=== PATIENT | female | born 1965 | race Caucasian/White ===

== ENCOUNTER 2023-07-13 12:20 | Emergency (ER) | payer MEDICARE, MEDICAID ==
[~2023-07-13] VITALS: Ht 162.6 cm; Wt 65.9 kg
[~2023-07-13 12:20] MED LIST: ALPR1TAB7 PO; BUME1TAB34 PO; CARV12.549 PO; CEPH-585 PO; ESTR1TAB28 PO; HYDR-3686 PO; LEVO50TA8 PO; LISI2.5T14 PO; NICO-630 TD; RIVA20TA PO
[2023-07-13 12:25] VITALS: BP 125/79; PULSE 85; RESP 16; TEMP 98; O2SAT 100
[2023-07-13 12:49] LABS: BASOPHILS % (AUTO) 0.7 % (0-1); EOSINOPHILS # (AUTO) 0.2 X10'3 (0-0.9); EOSINOPHILS % (AUTO) 2.9 % (0-6); HEMATOCRIT 40.2 % (35.0-45.0); HEMOGLOBIN 13.7 g/dl (12.0-16.0); LYMPHOCYTES # (AUTO) 3.1 X10'3 (1.1-4.8); LYMPHOCYTES % (AUTO) 48.1 % (21-51); MEAN CORPUSCULAR HEMOGLOBIN 31.1 PG (27.0-31.0); MEAN CORPUSCULAR VOLUME 91.3 FL (78-98); MEAN PLATELET VOLUME 9.3 FL (7.4-10.4); MONOCYTES # (AUTO) 0.6 X10'3 (0-0.9); MONOCYTES % (AUTO) 8.8 % (2-12); NEUTROPHILS # (AUTO) 2.5 X10'3 (1.8-7.7); NEUTROPHILS % (AUTO) 39.5 % (42-75); PLATELET COUNT 217 X10'3 (140-440); RED CELL DISTRIBUTION WIDTH 13.3 % (11.5-14.5); WHITE BLOOD COUNT 6.4 X10'3 (4.5-11.0)
[2023-07-13 13:11] LABS: ALANINE AMINOTRANSFERASE 26 U/L (12-78); ALKALINE PHOSPHATASE 69 IU/L (46-116); ANION GAP 5 (8-16); ASPARTATE AMINO TRANSFERASE 25 U/L (10-37); BILIRUBIN,TOTAL 0.4 MG/DL (0.1-1.0); BLOOD UREA NITROGEN 16 MG/DL (7-18); BUN/CREATININE RATIO 13.8 (10.0-20.0); CALCIUM 9.3 MG/DL (8.5-10.1); CHLORIDE 103 MMOL/L (99-107); CREATININE 1.16 MG/DL (0.40-0.90); GLUCOSE 94 MG/DL (70-104); POTASSIUM 4.6 MMOL/L (3.5-5.1); SODIUM 139 MMOL/L (135-145); TOTAL CARBON DIOXIDE 30.6 MMOL/L (24-32); TOTAL PROTEIN 7.9 G/DL (6.4-8.2); eCRCL 47 ML/MIN; eGFR 48 ML/MIN
[2023-07-13 13:17] LABS: PRO BRAIN NATRIURETIC PEPTIDE 149 PG/ML (0-125)
== END 2023-07-13 16:27 | disposition left against medical advice (07) ==
LOC: ER 12:21
DX: R07.9 Chest pain, unspecified (principal); Z53.21 Procedure and treatment not carried out due to patient leaving prior to being seen by health care provider
CPT/HCPCS: 36415; 71045; 80053; 83880; 84484; 85025; 93005; 99281

== ENCOUNTER 2025-04-28 09:32 | Emergency (ER) | payer MEDICARE, MEDICAID ==
[~2025-04-28] VITALS: Ht 162.6 cm; Wt 68.8 kg
[~2025-04-28 09:32] MED LIST changes: +ALPR-385 PO; -BUME1TAB34 PO; +BUME1TAB45 PO
[2025-04-28 09:40] VITALS: BP 102/58; PULSE 77; RESP 18; TEMP 97.8; O2SAT 96
[2025-04-28] MEDS ORDERED: ALPR-624 PO (10:20)
--- NOTE | 2025-04-28 10:20 | Physician Documentation ---
HPI ~ General Chief Complaint: Medication Request Stated Complaint: ANXIETY Time Seen by MD: 10:06 Primary Medical Doctor: Dr Dada Kaur at [facility] History of Present Illness HPI Comments 60-year-old female with a history of anxiety presents requesting medication refill of Xanax 1 mg 3 times area daily for a whole month because she is waiting to see for [facility]. denies HI or SI Medication Reconciliation Allergies: Coded Allergies: metoclopramide (Verified Allergy, Severe, 04/28/25) prochlorperazine (Verified Allergy, Severe, 04/28/25) chlordiazepoxide (Verified Allergy, Unknown, 04/28/25) dicyclomine (Verified Allergy, Unknown, 04/28/25) Uncoded Allergies: PEACHES (Allergy, Severe, 03/19/16) Scheduled Bumetanide (Bumetanide), 1 TAB PO BID, (Reported) Carvedilol (Carvedilol), 1 TAB PO BID, (Reported) Cephalexin*Monohydrate* (Keflex*), 500 MG PO BID Estradiol (Estradiol), 1 TAB PO DAILY, (Reported) Hydroxyzine Hcl* (Atarax*), 1 TAB PO BID, (Reported) Levothyroxine Sodium (Levothyroxine Sodium), 1 TAB PO QAM, (Reported) Lisinopril (Lisinopril), 2 TAB PO DAILY, (Reported) Nicotine 7 MG Patch* (Habitrol 7 MG Patch*), 1 PATCH TD DAILY Rivaroxaban (Xarelto), 1 TAB PO DAILY, (Reported) Scheduled PRN Alprazolam (Alprazolam), 1 TAB PO TID PRN for anxiety, (Reported) Alprazolam (Alprazolam), 1 TAB PO Q12H PRN PRN for anxiety Alprazolam* (Xanax*), 1 TAB PO Q12H PRN PRN for anxiety Past Medical History Past Medical History: *CARDIOVASCULAR* Other Past Surgical History: ICD placement Patient History: Frankie thyroiditis MOTHER Alcohol Use: None Drug Use: none Lives with: Family Lives In: Home Occupation: unemployed Review of Systems All Other Systems at this time: Reviewed and Negative ROS As stated above in the HPI, otherwise all systems are reviewed and negative. Physical Exam Physical Exam Vital Signs: Temperature: 97.8, Source: Temporal, Heart Rate: 77, Respiratory Rate: 18, BP: 102/58, Pulse Oximetry: 96, Weight: 68.800 Physical Exam General: Alert, no apparent distress. Respiratory: Lungs clear, no respiratory distress. Cardiovascular: Regular rate and rhythm, no murmurs. Gastrointestinal: Soft, nontender, nondistended. Bowels sounds present. Neurologic: Oriented x4. Psychiatric: Normal mood and affect. Skin: Normal color, warm and dry. No edema, no ecchymosis. Progress Results/Orders Results/Orders Vital Signs 04/28/25 09:40 Temp 97.8 Pulse 77 Resp 18 B/P (MAP) 102/58 Pulse Ox 96 Medical Decision Making Additional info obtained from: other Findings Not feel comfortable prescribing a large amount of Xanax to this patient considering she is being follow up in the outpatient setting. Told her I would give her two pills and her response was "okay then I am going to come back every day". Told her that was an inappropriate use of the emergency room. Advised h er to taper off benzodiazepines as she has clearly developed a tolerance. I offered Atarax she says she already has that at home Differential Dx:Considerations: Include: Adverse circumstances, Economic, Psychosocial, Medical services unavail., Medication refill, Medication non- compliance, Other Departure Disposition: 01 HOME / SELF CARE / HOMELESS Impression: Primary Impression: Encounter for medication refill Discharge Instructions: Medicine Refill at the Emergency Department Referrals: NO PRIMARY CARE PROVIDER (PCP) Prescriptions Alprazolam* (Xanax*) 0.5 Mg Tablet 1 TAB PO Q12H PRN PRN for anxiety for 1 Day, #2 TAB 0 Refills Prov: FRANK DELEON NP 04/28/25 Education Educated: Patient Educated regarding: diagnosis Signature Scribe Signature: gf Attestation: Scribed for Frank Deleon Photoengraving Supervisor by Frank Florentino NP . 04/28/25 10:18 FRANK DELEON NP Apr 28, 2025 10:20
== END 2025-04-28 10:45 | disposition home or self-care (01) ==
LOC: ER 09:33
DX: F41.9 Anxiety disorder, unspecified (principal); Z76.0 Encounter for issue of repeat prescription; Z88.8 Allergy status to other drugs, medicaments and biological substances; Z79.899 Other long term (current) drug therapy; Z56.0 Unemployment, unspecified
CPT/HCPCS: 99282

== ENCOUNTER 2025-04-30 07:46 | Emergency (ER) | payer MEDICARE, MEDICAID ==
[~2025-04-30] VITALS: Ht 162.6 cm; Wt 68.2 kg
[~2025-04-30 07:46] MED LIST changes: +ALPR-624 PO
--- NOTE | 2025-04-30 08:41 | Physician Documentation ---
History of Present Illness General Chief Complaint: Medication Refill Stated Complaint: ANXIETY Time Seen by MD: 08:35 Primary Medical Doctor: Dr Dada Kaur at [facility] History of Present Illness Initial Comments Patient is a 60-year-old female states that she has been on Xanax since she was 23 and she states she has run out of her prescription of Xanax patient states that she does have a appointment on the 12th with the next month with [facility]. Patient states she has been decreasing her dose of Xanax at home but his currently running out. Patient was given two Xanax several days ago for a prescription. The patient denies any fevers chills nausea vomiting or diarrhea. Medication Reconciliation Allergies: Coded Allergies: metoclopramide (Verified Allergy, Severe, 04/30/25) prochlorperazine (Verified Allergy, Severe, 04/30/25) chlordiazepoxide (Verified Allergy, Unknown, 04/30/25) dicyclomine (Verified Allergy, Unknown, 04/30/25) Uncoded Allergies: PEACHES (Allergy, Severe, 03/19/16) Scheduled Bumetanide (Bumetanide), 1 TAB PO BID, (Reported) Carvedilol (Carvedilol), 1 TAB PO BID, (Reported) Cephalexin*Monohydrate* (Keflex*), 500 MG PO BID Estradiol (Estradiol), 1 TAB PO DAILY, (Reported) Hydroxyzine Hcl* (Atarax*), 1 TAB PO BID, (Reported) Levothyroxine Sodium (Levothyroxine Sodium), 1 TAB PO QAM, (Reported) Lisinopril (Lisinopril), 2 TAB PO DAILY, (Reported) Nicotine 7 MG Patch* (Habitrol 7 MG Patch*), 1 PATCH TD DAILY Rivaroxaban (Xarelto), 1 TAB PO DAILY, (Reported) Scheduled PRN Alprazolam (Alprazolam), 1 TAB PO TID PRN for anxiety, (Reported) Alprazolam (Alprazolam), 1 TAB PO Q12H PRN PRN for anxiety Alprazolam* (Xanax*), 1 TAB PO Q12H PRN PRN for anxiety Lorazepam (Ativan), 1 TAB PO Q8H PRN for anxiety Past Medical History Past Medical History: *CARDIOVASCULAR* Other Past Surgical History: ICD placement Alcohol Use: None Drug Use: none Lives with: Family Lives In: Home Occupation: unemployed Review of Systems All Other Systems at this time: Reviewed and Negative Physical Exam Physical Exam Vital Signs: Source: Oral, Heart Rate: 75, Respiratory Rate: 18, BP: 115/71, Pulse Oximetry: 99, Weight: 68.180 Physical Exam VITALS: Reviewed and as above. GENERAL: Alert, no apparent distress. HEENT: Normocephalic, atraumatic, PERRL, EOMI, dry mucosa, no erythema RESPIRATORY: Lungs clear, normal breath sounds, no respiratory distress. CHEST: No accessory muscle use, no retractions CV: Regular rate, rhythm, no edema, no murmur, No: JVD GI: Soft, non-tender, bowels sounds present, no rebound, guarding, or rigidity BACK: No CVA tenderness, or swelling MUSCULOSKELETAL: No deformities, no edema SKIN: Warm and dry, no rash NEURO: Oriented x4, No motor or sensory deficit PSYCH: Normal mood and affect, no agitation Progress Results/Orders Results/Orders Vital Signs 04/30/25 04/30/25 04/30/25 07:52 09:27 09:28 Pulse 75 60 61 Resp 18 18 18 B/P (MAP) 115/71 119/76 (90) 119/76 Pulse Ox 99 98 98 O2 Flow Rate 0 Medical Decision Making Additional information obtaine: old records Findings Patient takes a large amount of his Xanax she is here requesting a refill of her Xanax and concerned that she might go into benzodiazepine withdrawal. The patient is currently not in no withdrawal state the patient has been advised that we do not prescribe continuing prescriptions for benzodiazepines I told her I would give her a one time prescription for Ativan 12 pills. The patient's prior hospitalizations have been reviewed patient is otherwise well-appearing. The patient's pulse oximetry was interpreted as normal and adequate the patient will be discharged Differential Diagnosis Benzodiazepine withdrawal drug-seeking behavior anxiety Departure Time of Disposition: 08:54 Disposition: 01 HOME / SELF CARE / HOMELESS Impression: Primary Impression: Anxiety Discharge Instructions: Generalized Anxiety Disorder, Adult Additional Instructions: Uterine going to need to find a primary provider to provide you with your next prescription, we can not continue to do this in the emergency department. Follow up with her healthcare provider Referrals: NO PRIMARY CARE PROVIDER (PCP) Prescriptions Lorazepam (Ativan) 1 Mg Tablet 1 TAB PO Q8H PRN for anxiety, #12 TAB 0 Refills Prov: KASANDRA GRIMM MD 04/30/25 Signature Scribe Signature: No scribe Attestation: The note accurately reflects work and decisions made by me.Kasandra Grimm MD 05/02/25 03:05 KASANDRA GRIMM MD Apr 30, 2025 08:41
[2025-04-30] MEDS ORDERED: LORA-269 PO (08:56)
[2025-04-30 09:28] VITALS: BP 119/76; PULSE 61; RESP 18; O2SAT 98
== END 2025-04-30 09:30 | disposition home or self-care (01) ==
LOC: ER 07:47
DX: F41.9 Anxiety disorder, unspecified (principal); Z88.8 Allergy status to other drugs, medicaments and biological substances
CPT/HCPCS: 99282; 99283

== ENCOUNTER 2025-05-04 06:28 | Emergency (ER) | payer MEDICARE, MEDICAID ==
[~2025-05-04] VITALS: Ht 162.6 cm; Wt 66.9 kg
[~2025-05-04 06:28] MED LIST changes: +LORA-269 PO
[2025-05-04 06:29] VITALS: BP 119/68; PULSE 77; RESP 16; TEMP 98; O2SAT 98
--- NOTE | 2025-05-04 07:29 | Physician Documentation ---
HPI ~ General Chief Complaint: Medication Request Stated Complaint: ANXIETY Time Seen by MD: 07:09 OK to notify your PCP?: No [facility] Source: patient (18), old records (Multiple visits for same) History of Present Illness HPI Comments Patient comes in for medication request. She reports that she has a history of anxiety since the age of 23 and it has been taking medications, most of the Versed since that time. Apparently her mental health care was spent with significant mental health, and she is being transferred to [facility] with the 1st appointment set for them . Patient reports that her provider at [facility] was going to give her enough medications to get through to the, but then did not. She also reports that she was supposed to take three patient has been seen here times for problems related to anxiety, was recently six days ago and four days ago. Then she reports anxiety, longstanding right-sided numbness of her body, sleeplessness, floaters in her obvious, and nausea, for which she takes Zofran. She has not been vomiting. Has a secondary complaint, patient reports several days of pain in her right dental arch, with pain along the gumline and states that she feels swelling in her neck. She has not made an appointment with her dentist. Medication Reconciliation Allergies: Coded Allergies: metoclopramide (Verified Allergy, Severe, 04/30/25) prochlorperazine (Verified Allergy, Severe, 04/30/25) chlordiazepoxide (Verified Allergy, Unknown, 04/30/25) dicyclomine (Verified Allergy, Unknown, 04/30/25) Uncoded Allergies: PEACHES (Allergy, Severe, 03/19/16) Scheduled Bumetanide (Bumetanide), 1 TAB PO BID, (Reported) Carvedilol (Carvedilol), 1 TAB PO BID, (Reported) Cephalexin*Monohydrate* (Keflex*), 500 MG PO BID Estradiol (Estradiol), 1 TAB PO DAILY, (Reported) Hydroxyzine Hcl* (Atarax*), 1 TAB PO BID, (Reported) Levothyroxine Sodium (Levothyroxine Sodium), 1 TAB PO QAM, (Reported) Lisinopril (Lisinopril), 2 TAB PO DAILY, (Reported) Nicotine 7 MG Patch* (Habitrol 7 MG Patch*), 1 PATCH TD DAILY Penicillin V Potassium* (Penicillin VK*), 1 TAB PO Q6H Rivaroxaban (Xarelto), 1 TAB PO DAILY, (Reported) Scheduled PRN Alprazolam (Alprazolam), 1 TAB PO TID PRN for anxiety, (Reported) Alprazolam (Alprazolam), 1 TAB PO Q12H PRN PRN for anxiety Alprazolam* (Xanax*), 1 TAB PO Q12H PRN PRN for anxiety Alprazolam* (Xanax*), 1 TAB PO TID PRN PRN for anxiety Lorazepam (Ativan), 1 TAB PO Q8H PRN for anxiety Past Medical History Past Medical History: *CARDIOVASCULAR* (History of hypotension), Congestive Heart Failure (Cardiomyopathy), Anxiety, Panic Disorder Other Past Surgical History: ICD placement Patient History: Frankie thyroiditis MOTHER Smoking Status: Former smoker Alcohol Use: None Drug Use: none Lives with: Family Lives In: Home Occupation: unemployed Review of Systems All Other Systems at this time: Reviewed and Negative Physical Exam Physical Exam Vital Signs: Temperature: 98.0, Source: Temporal, Heart Rate: 77, Respiratory Rate: 16, BP: 119/68, Pulse Oximetry: 98, Weight: 66.900 Oxygen Flow Rate: 0 Physical Exam General: Pt is awake, alert, oriented x4 in no acute distress . No tremor. Patient's speech is slow. Head: Normocephalic and atraumatic. Eyes: Conjunctiva normal. ENT: Mucous membranes moist. Significant dental decay of the premolars and molars in the right mandibular arch. Tender to percussion. No gingival swelling noted. No swelling at the angle of the jaw. Neck: Supple. No masses. Chest: Clear to auscultation bilaterally, without rales, rhonchi, or wheezes. There is no accessory muscle use or retractions. Cardiac: Regular rate and rhythm without murmurs, gallops or rubs. Palpation of the chest wall is normal. Abd: Soft, nondistended, nontender, with normoactive bowel sounds. No guarding or rebound. Extremities: Within normal limits without cyanosis, clubbing, or edema. Skin: [place], warm and dry with no significant rash appreciated. Neuro: Cranial nerves II-XII grossly intact. The gait is normal. No tremor. Progress Results/Orders Results/Orders Completed Orders - RICHARD NAPIER MD Alprazolam Tablet (Xanax Tablet) (05/04/25 08:55) Vital Signs 05/04/25 06:29 Temp 98.0 Pulse 77 Resp 16 B/P (MAP) 119/68 Pulse Ox 98 O2 Flow Rate 0 Medical Decision Making Additional information obtaine: old records Differential Dx:Considerations: Include: Other Additional Comment Patient with long history of anxiety, here seeking medications despite being told on several occasions and we will not prescribe her full courses of her medications. She is advised to follow up when she can with mental health, and until then to be seen at her primary care clinic. She is showing no evidence for withdrawal at this time. I did tell her I would write her for two days of medication until she can get into see the urgent care at her clinic. Also she is advised to follow up with her dentist and will be started on antibiotics until then. Patient understands to return to the emergency department if she has new symptoms, but understands that we will not be giving her a month long prescription for benzodiazepines. Departure Time of Disposition: 07:30 Disposition: 01 HOME / SELF CARE / HOMELESS Impression: Primary Impression: General medical exam Additional Impressions: Anxiety Caries Condition: Stable Discharge Instructions: Medicine Refill at the Emergency Department Additional Instructions: Please follow-up at your general clinic until you can be seen at the mental health clinic. We will not be providing a full course of your benzodiazepine medications as it is an inappropriate use of the emergency department and not safe for your health. Call your dentist to make a follow-up appointment take care of your dental caries, take the antibiotics as prescribed. Return to the emergency department if any new concerns or symptoms. Referrals: NO PRIMARY CARE PROVIDER (PCP) Prescriptions Penicillin V Potassium* (Penicillin VK*) 500 Mg Tablet 1 TAB PO Q6H for 10 Days, #40 TAB Prov: RICHARD NAPIER MD 05/04/25 Alprazolam* (Xanax*) 0.5 Mg Tablet 1 TAB PO TID PRN PRN for anxiety, #6 TAB 0 Refills Prov: RICHARD NAPIER MD 05/04/25 Education Educated: Patient, Family Educated regarding: diagnosis, treatment Signature Scribe Signature: Attestation: RICHARD NAPIER MD May 04, 2025 07:29
[2025-05-04] MEDS ORDERED: ALPR-624 PO (07:32)
[2025-05-04] MEDS ORDERED: PENI500T2 PO (07:32)
[2025-05-04] MEDS: ALPRAZolam 0.25mg tablet PO ONE (08:57)
== END 2025-05-04 08:59 | disposition home or self-care (01) ==
LOC: ER 06:28
DX: Z00.00 Encounter for general adult medical examination without abnormal findings (principal); F41.9 Anxiety disorder, unspecified; K02.9 Dental caries, unspecified; G47.00 Insomnia, unspecified; I50.9 Heart failure, unspecified; Z88.8 Allergy status to other drugs, medicaments and biological substances; Z79.899 Other long term (current) drug therapy; Z56.0 Unemployment, unspecified
CPT/HCPCS: 99283

== ENCOUNTER 2025-05-06 19:07 | Emergency (ER) | payer MEDICARE, MEDICAID ==
[~2025-05-06] VITALS: Ht 157.5 cm; Wt 66.1 kg
[~2025-05-06 19:07] MED LIST changes: +PENI500T2 PO
[2025-05-06 20:24] VITALS: BP 102/58; PULSE 67; RESP 18; TEMP 98; O2SAT 98
--- NOTE | 2025-05-06 20:41 | Physician Documentation ---
HPI ~ General Chief Complaint: Medication Request Stated Complaint: ANXIETY Time Seen by MD: 20:31 Primary Medical Doctor: TIMOTHY Flor History of Present Illness HPI Comments Breakthrough Medication refill of Xanax. Patient has had difficulty getting her realigned with knee psychiatry. She has did get reconnected with her primary care physician who is out of the office yet has a scheduled appointment with somebody else in the office this Monday. She will receive a single dose of Ativan 0.5 mg tonight in the emergency department I will be giving her only six tablets. She understands that there will be no further prescription refills from the emergency department and that she is in acute crisis. Medication Reconciliation Allergies: Coded Allergies: metoclopramide (Verified Allergy, Severe, 04/30/25) prochlorperazine (Verified Allergy, Severe, 04/30/25) chlordiazepoxide (Verified Allergy, Unknown, 04/30/25) dicyclomine (Verified Allergy, Unknown, 04/30/25) Uncoded Allergies: PEACHES (Allergy, Severe, 03/19/16) Scheduled Bumetanide (Bumetanide), 1 TAB PO BID, (Reported) Carvedilol (Carvedilol), 1 TAB PO BID, (Reported) Cephalexin*Monohydrate* (Keflex*), 500 MG PO BID Estradiol (Estradiol), 1 TAB PO DAILY, (Reported) Hydroxyzine Hcl* (Atarax*), 1 TAB PO BID, (Reported) Levothyroxine Sodium (Levothyroxine Sodium), 1 TAB PO QAM, (Reported) Lisinopril (Lisinopril), 2 TAB PO DAILY, (Reported) Nicotine 7 MG Patch* (Habitrol 7 MG Patch*), 1 PATCH TD DAILY Penicillin V Potassium* (Penicillin VK*), 1 TAB PO Q6H Rivaroxaban (Xarelto), 1 TAB PO DAILY, (Reported) Scheduled PRN Alprazolam (Alprazolam), 1 TAB PO TID PRN for anxiety, (Reported) Alprazolam (Alprazolam), 1 TAB PO Q12H PRN PRN for anxiety Alprazolam (Xanax), 1 TAB PO TID PRN PRN for anxiety Alprazolam* (Xanax*), 1 TAB PO Q12H PRN PRN for anxiety Alprazolam* (Xanax*), 1 TAB PO TID PRN PRN for anxiety Lorazepam (Ativan), 1 TAB PO Q8H PRN for anxiety Past Medical History Past Medical History: *CARDIOVASCULAR*, Congestive Heart Failure, Anxiety, Panic Disorder Other Past Surgical History: ICD placement Patient History: Frankie thyroiditis MOTHER Alcohol Use: None Drug Use: none Lives with: Family Lives In: Home Occupation: unemployed Review of Systems All Other Systems at this time: Reviewed and Negative Psychiatric Anxiousness Physical Exam Physical Exam Vital Signs: RN Vital Signs have been reviewed: Yes, Temperature: 98.0, Source: Temporal, Heart Rate: 67, Respiratory Rate: 18, BP: 102/58, Pulse Oximetry: 98, Weight: 66.100 Oxygen Flow Rate: 0 General Appearance: alert, WD/WN (Anxious) Pupils/EOM/Fundus: PERRLA Neck: non-tender Respiratory: no respiratory distress Chest: no accessory muscle use Extremities: normal inspection Neurologic: oriented x4 Motor / Sensory: no motor deficit Thought/Hallucinations: normal thought pattern Affect: flat Skin: warm/dry Progress Results/Orders Results/Orders Completed Orders - BABITA LEWIS PAC Alprazolam Tablet (Xanax Tablet) (05/06/25 20:50) Vital Signs 05/06/25 20:24 Temp 98.0 Pulse 67 Resp 18 B/P (MAP) 102/58 Pulse Ox 98 O2 Flow Rate 0 Medical Decision Making Additional information obtaine: family Findings 60-year-old female who presents to the emergency department for breakthrough prescription for Xanax for chronic generalized anxiety disorder patient normally takes 1 mg 3 times a day however has had difficulty getting alignment or primary care physician midst of changing from psychiatry centers.. No red flags. Patient provided two day course and given a one time dose tonight. She has scheduled follow up on Monday and has a line was psychiatry. She is in the company of her family member. Safe for discharge. Differential Dx:Considerations: Include: Adverse circumstances, Medical services unavail., Medication refill Departure Disposition: HOME / SELF CARE / HOMELESS Impression: Primary Impression: Anxiety Additional Impression: Encounter for medication refill Discharge Instructions: Medicine Refill at the Emergency Department, Medical Screening Exam Additional Instructions: You must obtain all further prescription refills of Ativan from your primary care physician and/or Psychiatry. Please obtain the breakthrough prescription and take only as directed. Keep your scheduled follow up this Monday. Referrals: NO PRIMARY CARE PROVIDER (PCP) Prescriptions Alprazolam (XANAX) 0.5 Mg Tablet 1 TAB PO TID PRN PRN for anxiety for 30 Days, #6 TAB 0 Refills Prov: BABITA LEWIS 05/06/25 Education Educated: Patient, Family Educated regarding: diagnosis, treatment, prognosis, need for follow up Signature Scribe Signature: . Attestation: . BABITA LEWIS PAC May 06, 2025 20:41
[2025-05-06] MEDS ORDERED: ALPR-624 PO (20:47)
== END 2025-05-06 21:03 | disposition home or self-care (01) ==
LOC: ER 19:08
DX: F41.9 Anxiety disorder, unspecified (principal); F41.0 Panic disorder [episodic paroxysmal anxiety]; I50.9 Heart failure, unspecified; Z76.0 Encounter for issue of repeat prescription; Z88.8 Allergy status to other drugs, medicaments and biological substances; Z56.0 Unemployment, unspecified; Z79.899 Other long term (current) drug therapy
CPT/HCPCS: 99283

== ENCOUNTER 2025-05-12 23:14 | Emergency (ER) | payer MEDICARE, MEDICAID ==
[~2025-05-12] VITALS: Ht 162.6 cm; Wt 68.2 kg
[2025-05-12 23:17] VITALS: BP 103/68; PULSE 71; O2SAT 99
--- NOTE | 2025-05-13 00:47 | Physician Documentation ---
HPI ~ General Chief Complaint: Medication Request Stated Complaint: ANXIETY/MEDICATION REQUEST Time Seen by MD: 00:23 Primary Medical Doctor: TIMOTHY Flor Source: patient Mode of Arrival: POV Exam Limitations: no limitations History of Present Illness HPI Comments Ms. Lantigua is a 60 y/o female who presents with request for a dose of Diazepam. She and her PCP are working on a slow wean from chronic benzodiazepines. She was previously on Xanax and Ativan but this was recently changed to Diazepam 10 mg (she has the empty bottle with her to confirm dose). Her physician was supposed to call in a refill script for her to be picked up today but the script was not available when she went to pick it up. She has missed her 1930 dose and is here to night requesting a dose to get her through to the morning to follow-up with her PCP. She is without severe withdrawal symptoms. No vomiting/diarrhea. Medication Reconciliation Allergies: Coded Allergies: metoclopramide (Verified Allergy, Severe, 04/30/25) prochlorperazine (Verified Allergy, Severe, 04/30/25) chlordiazepoxide (Verified Allergy, Unknown, 04/30/25) dicyclomine (Verified Allergy, Unknown, 04/30/25) Uncoded Allergies: PEACHES (Allergy, Severe, 03/19/16) Scheduled Bumetanide (Bumetanide), 1 TAB PO BID, (Reported) Carvedilol (Carvedilol), 1 TAB PO BID, (Reported) Cephalexin*Monohydrate* (Keflex*), 500 MG PO BID Estradiol (Estradiol), 1 TAB PO DAILY, (Reported) Hydroxyzine Hcl* (Atarax*), 1 TAB PO BID, (Reported) Levothyroxine Sodium (Levothyroxine Sodium), 1 TAB PO QAM, (Reported) Lisinopril (Lisinopril), 2 TAB PO DAILY, (Reported) Nicotine 7 MG Patch* (Habitrol 7 MG Patch*), 1 PATCH TD DAILY Penicillin V Potassium* (Penicillin VK*), 1 TAB PO Q6H Rivaroxaban (Xarelto), 1 TAB PO DAILY, (Reported) Scheduled PRN Alprazolam (Alprazolam), 1 TAB PO TID PRN for anxiety, (Reported) Alprazolam (Alprazolam), 1 TAB PO Q12H PRN PRN for anxiety Alprazolam (Xanax), 1 TAB PO TID PRN PRN for anxiety Alprazolam* (Xanax*), 1 TAB PO Q12H PRN PRN for anxiety Alprazolam* (Xanax*), 1 TAB PO TID PRN PRN for anxiety Lorazepam (Ativan), 1 TAB PO Q8H PRN for anxiety Past Medical History Past Medical History: *CARDIOVASCULAR*, Congestive Heart Failure, Anxiety, Panic Disorder Other Past Surgical History: ICD placement Patient History: Frankie thyroiditis MOTHER Alcohol Use: None Drug Use: none Lives with: Family Lives In: Home Occupation: unemployed Review of Systems All Other Systems at this time: Reviewed and Negative Physical Exam Physical Exam Vital Signs: RN Vital Signs have been reviewed: Yes, Temperature: 97.4, Source: Temporal, Heart Rate: 71, Respiratory Rate: 18, BP: 103/68, Pulse Oximetry: 99, Weight: 68.200 Oxygen Flow Rate: 0 Physical Exam GEN: Alert and oriented and in NAD. HEENT: NC/AT. PERRLA. No scleral icterus. MMM. No oral lesions. NECK: Supple. No JVD. CHEST: RRR. No M/G/T. LUNGS: CTA B. No W/R/R. ABD: Soft. NTND. + BS. No rebounding or guarding. BACK: No CVA TTP. EXT: No c/c/e. NEURO: Alert and oriented x 4. Cooperative. Sensorimotor intact x 4 extremities. Progress Results/Orders Results/Orders Orders - GRETEL GUNTER MD Diazepam Tablet (Valium Tablet) (05/13/25 00:40) Vital Signs 05/12/25 23:17 Temp 97.4 Pulse 71 Resp 18 B/P (MAP) 103/68 Pulse Ox 99 O2 Flow Rate 0 Medical Decision Making Additional information obtaine: N/A Findings While here in the ED, she remained hemodynamically normal with ABC's intact and in NAD. She is afebrile and nontoxic. She was given her single dose of Diazepam 10 mg PO x 1 here in the ED. She is safe for d/c home. She is to follow-up with her physician in the morning for her weekly refill. She was given follow-up and return instructions. She voiced understanding and agreement with d/c instructions. Differential Dx:Considerations: Include: Medication refill Departure Disposition: HOME / SELF CARE / HOMELESS Impression: Primary Impression: Encounter for medication refill Condition: Improved Discharge Instructions: Medicine Refill at the Emergency Department Referrals: NO PRIMARY CARE PROVIDER (PCP) Comments Please follow-up with your PCP tomorrow morning and return to the Emergency Department if there are any additional concerns. Education Educated: Patient, Family Educated regarding: diagnosis, treatment ACF Form Admit Criteria Met or Not Met: NO Signature Scribe Signature: N/A Attestation: N/A GRETEL GUNTER MD May 13, 2025 00:46
[2025-05-13 00:48] VITALS: RESP 18
[2025-05-13 00:49] VITALS: TEMP 97.4
== END 2025-05-13 00:51 | disposition home or self-care (01) ==
LOC: ER 23:15
DX: F41.9 Anxiety disorder, unspecified (principal); I50.9 Heart failure, unspecified; Z76.0 Encounter for issue of repeat prescription; Z88.8 Allergy status to other drugs, medicaments and biological substances; Z56.0 Unemployment, unspecified
CPT/HCPCS: 99283

== ENCOUNTER 2025-06-13 23:14 | Emergency (ER) | payer MEDICARE, MEDICAID ==
[~2025-06-13] VITALS: Ht 162.6 cm; Wt 69.1 kg
[~2025-06-13 23:14] MED LIST changes: -PENI500T2 PO
--- NOTE | 2025-06-14 03:50 | ELECTROCARDIOGRAPH REPORT ---
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 Arash Angel Measurements Intervals [place] Rate: 59 P: 0 MA: 209 QRS: 39 QRSD: 97 T: 18 QT: 418 QTc: 414 Interpretive Statements Atrial-paced rhythm Borderline T abnormalities, anterior leads Baseline wander in lead(s) V5 Electronically Signed On 06-14-2025 3:51:[address] Arash Angel Please click the below link to view image of tracing.
--- NOTE | 2025-06-14 04:06 | RADIOLOGY REPORT ---
CHEST RADIOGRAPH Indication: CP Technique: Single frontal view of the chest was obtained COMPARISON: DI CHEST,SINGLE VIEW on DOS: 07/13/23, DI CHEST,SINGLE VIEW on DOS: 03/25/23 FINDINGS: Lines and Tubes: None. Left anterior chest wall cardiac pacing device. Lungs: Moderate right basilar infiltrate. Pleura: No effusion. No pneumothorax. Cardiomediastinal contours: Unremarkable Bones: Unremarkable IMPRESSION: 1. Moderate right basilar infiltrate.
[2025-06-14 04:07] LABS: MEAN PLATELET VOLUME 8.8 FL (7.4-10.4); RED CELL DISTRIBUTION WIDTH 13.0 % (11.5-14.5)
[2025-06-14 04:25] LABS: CREATININE 1.17 MG/DL (0.40-0.90); ETHANOL < 10 MG/DL (<10); PRO BRAIN NATRIURETIC PEPTIDE 324 PG/ML (0-125); TOTAL CARBON DIOXIDE 31.6 MMOL/L (24-32); eCRCL 45 ML/MIN; eGFR 48 ML/MIN
--- NOTE | 2025-06-14 05:01 | Physician Documentation ---
History of Present Illness ~ Chief Complaint: Mechanical Fall Stated Complaint: FALL Time Seen by MD: 04:59 OK to notify your PCP?: Yes Primary Medical Doctor: TIMOTHY Flor Source: patient, RN/MD, EMS, RN notes reviewed, EMS notes reviewed, old records Mode of Arrival: EMS Exam Limitations: no limitations HPI This patient is on Suboxone. Patient has also had multiple falls and is on blood thinners. No loss of consciousness her fall was two days ago. She came in because of her fall but denies any neck or head pain no headaches. She is slurring her words. Patient states she is at baseline and when she is in a lot of pain 10s to slur her words. She has chronic pain symptoms and takes Valium. She arrives with a pinpoint pupils. She has a history of cardiomyopathy as well as a prior pacemaker on Xarelto. Patient denies any other complaints states that she has been through a lot and she has a very ill person. Patient denies any history of stroke and states that she is slurring her words because she is sleepy Tetanus within 5 Years?: No Medication Reconciliation Allergies: Coded Allergies: metoclopramide (Verified Allergy, Severe, 06/13/25) prochlorperazine (Verified Allergy, Severe, 06/13/25) chlordiazepoxide (Verified Allergy, Unknown, 06/13/25) dicyclomine (Verified Allergy, Unknown, 06/13/25) Uncoded Allergies: PEACHES (Allergy, Severe, 03/19/16) Scheduled Bumetanide (Bumetanide), 1 TAB PO BID, (Reported) Carvedilol (Carvedilol), 1 TAB PO BID, (Reported) Cephalexin*Monohydrate* (Keflex*), 500 MG PO BID Estradiol (Estradiol), 1 TAB PO DAILY, (Reported) Hydroxyzine Hcl* (Atarax*), 1 TAB PO BID, (Reported) Levothyroxine Sodium (Levothyroxine Sodium), 1 TAB PO QAM, (Reported) Lisinopril (Lisinopril), 2 TAB PO DAILY, (Reported) Nicotine 7 MG Patch* (Habitrol 7 MG Patch*), 1 PATCH TD DAILY Rivaroxaban (Xarelto), 1 TAB PO DAILY, (Reported) Scheduled PRN Alprazolam (Alprazolam), 1 TAB PO TID PRN for anxiety, (Reported) Alprazolam (Alprazolam), 1 TAB PO Q12H PRN PRN for anxiety Alprazolam (Xanax), 1 TAB PO TID PRN PRN for anxiety Alprazolam* (Xanax*), 1 TAB PO Q12H PRN PRN for anxiety Alprazolam* (Xanax*), 1 TAB PO TID PRN PRN for anxiety Lorazepam (Ativan), 1 TAB PO Q8H PRN for anxiety Past Medical History Past Medical History: *CARDIOVASCULAR*, Congestive Heart Failure, Anxiety, Panic Disorder Past Surgical History: pacemaker Other Past Surgical History: ICD placement Patient History: Frankie thyroiditis MOTHER Alcohol Use: None Drug Use: none Lives with: Family Lives In: Home Occupation: unemployed Review of Systems All Other Systems at this time: Reviewed and Negative Physical Exam Vital Signs: RN Vital Signs have been reviewed: Yes, Temperature: 98.1, Source: Oral, Heart Rate: 66, Respiratory Rate: 11, BP: 99/63, Pulse Oximetry: 100, Weig ht: 69.090 Oxygen Flow Rate: 0 Physical Exam General: The patient is well developed, well nourished, nontoxic appearing and is in no acute distress. Slurred speech Skin: [place], warm and dry with no rashes. HEENT: Head was normocephalic and atraumatic. Eyes - 1 mm pupils equal, round, reactive to light and accommodation. Extraocular movements were intact. Conjunctivae were nonicteric. The mouth and oropharynx were clear with moist mucous membranes. There were no pharyngeal exudates or erythema. Neck: Supple and nontender. There was no jugular venous distention, lymphadenopathy, thyromegaly or masses. Chest: Clear to auscultation bilaterally without wheezes, rales or rhonchi. No accessory muscle use. No dullness to percussion. Heart: Rate regular and rhythmic. S1, S2. No murmurs. Palpation of the chest wall was normal. No rubs or thrills. Abdomen: Soft, nontender and nondistended. Positive bowel sounds. No guarding or rebound. No hepatosplenomegaly or palpable masses. Extremities: No cyanosis, clubbing or trace edema. The patient moves all extremities. Pulses were equal and symmetric. Neurologic: Motor sensory grossly intact, patient slurs her speech Psychologic: The patient was oriented to person, place and time. Progress Progress Note 5:50 a.m. discussed the case with the hospitalist who kindly agreed to admit the patient for further workup and care. Results/Orders Reviewed/noted all lab results: Yes Results/Orders Orders - ARASH LYMAN MD Chest,Single View (06/14/25 03:56) Monitor (06/14/25 03:35) Saline Lock (06/14/25 03:35) Oxygen (06/14/25 03:35) BMP (06/14/25 03:35) PBNP (06/14/25 03:35) Electrocardiogram (06/14/25 03:35) Hs Troponin I W Calculations (06/14/25 05:35) Hs Troponin I W Calculations (06/14/25 06:35) Ethanol (06/14/25 03:35) Drug Screen, Urine (06/14/25 03:35) Urinalysis, Cult If Indicated (06/14/25 03:35) Straight Cath For Urine Sample (06/14/25 03:35) Ct Head (06/14/25 05:25) Page Hospitalist (06/14/25 05:21) Fill Out Med Reconciliation (06/14/25 05:21) Culture Blood (06/14/25 05:26) Procalcitonin (06/14/25 05:26) Ceftriaxone 2gm/D5w 50ml Bag (Rocephin 2 (06/14/25 05:30) Lacticsepsis (06/14/25 05:26) Normal Saline 1000ml (0.9% Sodium Chlori (06/14/25 05:30) Liver Panel (06/14/25 03:51) Completed Orders - ARASH LYMAN MD Chest,Single View (06/14/25 03:56) Cbc/Diff (06/14/25 03:35) Electrocardiogram (06/14/25 03:35) Hs Troponin I W Calculations (06/14/25 03:35) Ct Head (06/14/25 05:25) Normal Saline 1000ml (0.9% Sodium Chlori (06/14/25 05:30) Vital Signs 06/13/25 06/13/25 06/14/25 23:20 23:45 02:03 Temp 98.1 Pulse 68 66 Resp 15 12 11 B/P (MAP) 104/58 99/63 (75) Pulse Ox 98 100 O2 Flow Rate 0 Laboratory Tests Test 06/14/25 03:51 White Blood Count 7.0 Red Blood Count 3.56 L Hemoglobin 10.9 L Hematocrit 31.5 L Mean Corpuscular Volume 88.6 Mean Corpuscular Hemoglobin 30.6 Mean Corpuscular Hemoglobin Concent 34.5 Red Cell Distribution Width 13.0 Platelet Count 200 Mean Platelet Volume 8.8 Neutrophils (%) (Auto) 59.0 Lymphocytes (%) (Auto) 26.6 Monocytes (%) (Auto) 10.5 Eosinophils (%) (Auto) 3.6 Basophils (%) (Auto) 0.3 Neutrophils # (Auto) 4.1 Lymphocytes # (Auto) 1.9 Monocytes # (Auto) 0.7 Eosinophils # (Auto) 0.3 Basophils # (Auto) 0.0 CBC Comment Sodium Level 143 Potassium Level 3.6 Chloride Level 106 Carbon Dioxide Level 31.6 Anion Gap 5 L Blood Urea Nitrogen 19 H Creatinine 1.17 H Estimated GFR/1.73 m2 48 BUN/Creatinine Ratio 16.2 Glucose Level 99 Calcium Level 8.4 L Troponin I High Sensitivity 6 Pro-B-Type Natriuretic Peptide 324 H Albumin 3.1 L Chemistry Comments Ethyl Alcohol Level < 10 Re-Evaluation Re-Evaluation : Re-Evaluation: Unchanged Progress Patient was seen and examined. Patient was given reassurance. Patient states she does have some chest pain when she breathes but that is not a new finding. She had some complaints of chills however she seems overly sedated she takes narcotics as well as Valium she originally presented with pinpoint pupils. Her x-ray shows an infiltrate at the right middle lobe and significant constipation most likely from narcotics. She was given antibiotics. Patient denies a histo ry of strokes. Patient laboratory work shows a WBC of 7.0 without a left shift borderline anemia 10 and 314 hemoglobin hematocrit. Patient's chemistry shows a proBNP of 324 but BUN 19 creatinine of 1.17 otherwise within normal limits troponins negative. LFTs are pending as well as blood culture and procalcitonin. Patient received a L bolus also given Rocephin. Patient was then admitted to the hospitalist service for further workup and care. Continuous outpatient surgery rn interpretation shows normal sinus rhythm heart rate 60s, no ectopy, normal, my interpretation. Pulse oximetry monitor interpretation shows normal oxygenation at 99% room air, normal, my interpretation. 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 Arash Lyman Measurements Intervals [place] Rate: 59 P: 0 MN: 209 QRS: 39 QRSD: 97 T: 18 QT: 418 QTc: 414 Interpretive Statements Atrial-paced rhythm Borderline T abnormalities, anterior leads Baseline wander in lead(s) V5 Electronically Signed On 06-14-2025 3:51:[address] Arash Lyman Please click the below link to view image of tracing. Chest X-Ray : Additional Comments CHEST RADIOGRAPH Indication: CP Technique: Single frontal view of the chest was obtained COMPARISON: DI CHEST,SINGLE VIEW on DOS: 07/13/23, DI CHEST,SINGLE VIEW on DOS: 03/25/23 FINDINGS: Lines and Tubes: None. Left anterior chest wall cardiac pacing device. Lungs: Moderate right basilar infiltrate. Pleura: No effusion. No pneumothorax. Cardiomediastinal contours: Unremarkable Bones: Unremarkable IMPRESSION: 1. Moderate right basilar infiltrate. Medical Decision Making Additional information obtaine: old records Findings Patient is a bit lethargic. Infectious etiologies one however this appears to be more polypharmacy. She has constant treated stools most likely to narcotics and slow transient if not hydration. Differential Dx:Considerations: Include: Closed head injury, Cardiac injury, Fracture(s), Cerebral contusion, Pulmonary contusion, Abrasion(s), Contusion(s), Encephalopathy, Other Departure Disposition: ADMITTED INPATIENT Admitted to Inpatient Unit: yes, to hospitalist Admission Level of Care: Med/Surg with Tele Impression: Primary Impression: Right lower lobe pneumonia Qualified Codes: J18.9 - Pneumonia, unspecified organism Additional Impressions: Fall Qualified Codes: W19.XXXA - Unspecified fall, initial encounter Generalized weakness Constipation Qualified Codes: K59.03 - Drug induced constipation Metabolic encephalopathy Condition: Fair Referrals: NO PRIMARY CARE PROVIDER (PCP) Education Educated: Patient Educated regarding: diagnosis, need for follow up, other Signature Scribe Signature: x Attestation: The note accurately reflects work and decisions made by me.Arash Lyman MD 06/14/25 05:00 ARASH LYMAN MD Jun 14, 2025 05:01
--- NOTE | 2025-06-14 06:04 | RADIOLOGY REPORT ---
EXAM: CT CT HEAD INDICATION: aloc TECHNIQUE: CT of the head without intravenous contrast. Radiation Dose : 1. Head: CT Dose: CTDI volume is 58.07 mGy. Dose-length product is 1037.5 mGy*cm The dose indicators for CT are the volume Computed Tomography (CT) Dose Index (CTDIvol) and the Dose Length Product (DLP), and are measured in units of mGy and mGy-cm, respectively. These indicators are not patient dose, but values generated from the CT scanner acquisition factors. The report includes radiation exposure data for exposures received during this examination. COMPARISON: None FINDINGS: Multifocal vasogenic cerebral edema is noted both supra and infratentorially. Multiple mass lesions are ill-defined in the absence of intravenous contrast including a 2.3 x 1.6 cm left cerebellopontine angle mass exhibiting slightly hyperdense parenchymal attenuation. Supratentorial masses include 3.1 x 2.2 cm right frontal and 1.9 cm right parietal mass lesions with corresponding vasogenic edema. There is associated mass effect with partial effacement of adjacent sulci as well as the right lateral ventricle. Also noted leftward midline shift, measuring 4 mm. The ventricles, sulci and cisterns are age appropriate. The estrella-white differentiation is otherwise intact. The visualized paranasal sinuses and mastoid air cells are clear. The surrounding soft tissues and osseous structures are unremarkable. IMPRESSION: 1. Multiple ill-defined intracranial masses with vasogenic edema and mass effect as described. 2. Findings are concerning for metastatic disease. 3. Recommend further evaluation with MRI of the brain with and without contrast. 4. Leftward midline shift measuring 4 mm. Critical Result: Intracranial masses, midline shift Findings discussed with ARASH ANGEL at 06/14/2025 08:55 AM EST, and acknowledged receipt and understanding of the findings. Radiation optimization: All CT scans at this facility use at least one of these dose optimization techniques: automated exposure control mA and/or kV adjustment per patient size (includes targeted exams where dose is matched to clinical indication) or iterative reconstruction.
[2025-06-14] MEDS: CefTRIAXone 2gm/D5W 50ml BAG 50 ML IV ONE (06:42)
[2025-06-14] MEDS: normal saline 1000ml 1,000 ML IV ONE (06:42)
[2025-06-14] MEDS: normal saline 1000ML IV soln IVB ONE (06:43)
[2025-06-14] MEDS ORDERED: FURO40TA4 PO (06:58)
[2025-06-14] MEDS ORDERED: METH-798 PO (06:58)
[2025-06-14] MEDS ORDERED: BUPR8TAB4 SL (06:58)
[2025-06-14] MEDS ORDERED: ESCI5TAB17 (06:58)
[2025-06-14] MEDS ORDERED: DIAZ5TAB5 (06:58)
[2025-06-14] MEDS ORDERED: LEVO75TA7 PO (06:58)
[2025-06-14 10:21] LABS: LEUKOCYTE ESTERASE ,URINE NEGATIVE (Neg); NITRITES, URINE NEGATIVE (Neg); OCCULT BLOOD,URINE NEGATIVE (Neg)
[2025-06-14 10:23] LABS: UA COLLECTION TYPE NON-SPECIFIED
[2025-06-14 10:30] LABS: URINE AMPHETAMINE SCREEN NEGATIVE (Neg); URINE BARBITUATE SCREEN NEGATIVE (Neg); URINE BENZODIAZEPINES SCREEN POSITIVE (Neg); URINE CANNABINOID SCREEN NEGATIVE (Neg); URINE COCAINE SCREEN NEGATIVE (Neg); URINE METHADONE SCREEN NEGATIVE (Neg); URINE OPIATE SCREEN NEGATIVE (Neg); URINE PHENCYCLIDINE SCREEN NEGATIVE (Neg)
[2025-06-14 10:31] LABS: MUCUS STRANDS MODERATE /LPF (Neg)
[2025-06-14 10:32] LABS: SQUAMOUS EPITHELIAL CELL,UR MANY /LPF (FEW)
[2025-06-14 13:21] VITALS: BP 123/68; PULSE 74; RESP 14; TEMP 97.7; O2SAT 100
== END 2025-06-14 13:54 | disposition short-term general hospital (02) ==
LOC: ER 23:15 → ED HOLD 06-14 05:56 → UNDOADMIN 06-14 05:56 → UNDODISIN 06-14 17:20
DX: J18.9 Pneumonia, unspecified organism (principal); K59.00 Constipation, unspecified; R53.1 Weakness; G93.41 Metabolic encephalopathy; F41.9 Anxiety disorder, unspecified; I50.9 Heart failure, unspecified; Z88.8 Allergy status to other drugs, medicaments and biological substances; Z56.0 Unemployment, unspecified; Z79.899 Other long term (current) drug therapy; Z95.0 Presence of cardiac pacemaker; W18.39XA Other fall on same level, initial encounter; Y93.89 Activity, other specified; Y92.89 Other specified places as the place of occurrence of the external cause; Y99.8 Other external cause status
CPT/HCPCS: 36415; 70450; 71045; 80048; 80076; 80305; 81001; 83605; 83880; 84145; 84484; 85025; 87040; 93005; 96361; 96365; 99285; G0480; J0696; J7030; 80320; G0378

== ENCOUNTER 2025-07-07 21:20 | Emergency (ER) | payer MEDICARE, MEDICAID ==
[~2025-07-07] VITALS: Ht 162.6 cm; Wt 70.5 kg
[~2025-07-07 21:20] MED LIST changes: +BUPR8TAB4 SL; +DIAZ5TAB5; +ESCI5TAB17; +FURO40TA4 PO; +LEVO75TA7 PO; +METH-798 PO
[2025-07-07 21:22] VITALS: BP 183/157; PULSE 84; RESP 16; TEMP 98; O2SAT 100
--- NOTE | 2025-07-07 21:51 | Physician Documentation ---
History of Present Illness ~ Chief Complaint: See Chief Complaint Stated Complaint: L FOOT NUMBNESS Time Seen by MD: 21:36 Primary Medical Doctor: TIMOTHY ENRIQUE This is a 60-year-old female who presents with concern for bruising to her left foot, patient reports no recent injuries and reports the area is nonpainful. Patient reports he talked to a advice nurse on the phone who advised her to present to the emergency department due to concern for lack of blood flow to the foot. Patient reports no numbness or tingling to the foot. Patient reports that she has history of lower extremity edema that she takes Bumex for. Patient reports no other acute symptoms or concerns. Tetanus witin 5 years: No Medication Reconciliation Allergies: Coded Allergies: metoclopramide (Verified Allergy, Severe, 06/13/25) prochlorperazine (Verified Allergy, Severe, 06/13/25) chlordiazepoxide (Verified Allergy, Unknown, 06/13/25) dicyclomine (Verified Allergy, Unknown, 06/13/25) Uncoded Allergies: PEACHES (Allergy, Severe, 03/19/16) Scheduled Bumetanide (Bumetanide), 1 TAB PO BID, (Reported) Carvedilol (Carvedilol), 1 TAB PO BID, (Reported) Cephalexin*Monohydrate* (Keflex*), 500 MG PO BID Estradiol (Estradiol), 1 TAB PO DAILY, (Reported) Furosemide (Furosemide), 1 TAB PO DAILY, (Reported) Hydroxyzine Hcl* (Atarax*), 1 TAB PO BID, (Reported) Levothyroxine Sodium (Levothyroxine Sodium), 1 TAB PO QAM, (Reported) Levothyroxine Sodium (Levothyroxine Sodium), 1 TAB PO DAILY, (Reported) Lisinopril (Lisinopril), 2 TAB PO DAILY, (Reported) Nicotine 7 MG Patch* (Habitrol 7 MG Patch*), 1 PATCH TD DAILY Rivaroxaban (Xarelto), 1 TAB PO DAILY, (Reported) Scheduled PRN Alprazolam (Alprazolam), 1 TAB PO TID PRN for anxiety, (Reported) Alprazolam (Alprazolam), 1 TAB PO Q12H PRN PRN for anxiety Alprazolam (Xanax), 1 TAB PO TID PRN PRN for anxiety Alprazolam* (Xanax*), 1 TAB PO Q12H PRN PRN for anxiety Alprazolam* (Xanax*), 1 TAB PO TID PRN PRN for anxiety Buprenorphine Hcl (Buprenorphine Hcl), 3 TAB SL DAILY PRN for pain, (Reported) Lorazepam (Ativan), 1 TAB PO Q8H PRN for anxiety Methocarbamol (Methocarbamol), 1 TAB PO Q12H PRN for muscle spasms, (Reported) Miscellaneous Medications Diazepam (Diazepam), (Reported) Escitalopram Oxalate (Escitalopram Oxalate), (Reported) Past Medical History Past Medical History: *CARDIOVASCULAR*, Congestive Heart Failure, Anxiety, Panic Disorder Past Surgical History: pacemaker Other Past Surgical History: ICD placement Patient History: Frankie thyroiditis MOTHER Alcohol Use: None Drug Use: none Lives with: Family Lives In: Home Occupation: unemployed Review of Systems ROS As stated above in the HPI, otherwise all systems are reviewed and negative. Physical Exam Vital Signs: Temperature: 98.0, Heart Rate: 84, Respiratory Rate: 16, BP: 183/ 157, Pulse Oximetry: 100, Weight: 70.500 Oxygen Flow Rate: 0 Physical Exam VITALS: Reviewed and as above. GENERAL: Alert, nontoxic appearing, no apparent distress. RESPIRATORY: No increased work of breathing, no respiratory distress, speaking in full clear sentences CV: 1+ pitting edema bilateral lower extremities, pedal pulses intact b ilaterally brisk capillary refill to bilateral feet SKIN: Left foot Ecchymosis to dorsal forefoot and medial mid foot, warm and dry, left foot temperature same as right foot temperature. Right foot no ecchymosis or erythema NEURO: Sensation intact to bilateral feet Progress Results/Orders Results/Orders Vital Signs 07/07/25 21:22 Temp 98.0 Pulse 84 Resp 16 B/P (MAP) 183/157 Pulse Ox 100 O2 Flow Rate 0 Medical Decision Making Additional information obtaine: N/A Findings This 60-year-old female presented with a concern for nontraumatic bruising to her left foot, as patient was concern for lack of blood flow to her foot on the advice of the telehealth nurse careful exam was performed in the when was found to be neurovascularly intact with brisk capillary refill, pedal pulses intact and equal bilaterally, and sensation intact. Nursing staff utilized Doppler to verify presents of pedal pulse in bilateral feet, patient is otherwise well- appearing and limb is neurovascularly intact I have low suspicion for vascular emergency at this time as patient reports no other acute symptoms or concerns she is appropriate for outpatient follow up for further source of ecchymosis to foot. Patient is provided follow up instructions and return to care precautions which he verbalized understanding of General Diff Dx:Considerations: Include: Abrasion, Contusion, Fracture, Hematoma, Laceration, Malunion, Neurovascular injury, Open fracture, Sprain, Ulcer Knee Diff Dx:Considerations: Unlikely: Abrasion, Arthritis, Contusion, DJD, Fracture-femur, Fracture-fibula, Fracture-patella, Fracture-tibia, Gout, Hematoma, Laceration, Meniscus injury, Neurovascular injury, Open fracture, Rheumatoid arthritis, Septic, Sprain, Sprain-MCL, Sprain-LCL, Sprain-ACL, Sprain-PCL, Other Ankle Diff Dx:Considerations: Include: Abrasion, Arthritis, Contusion, Fracture-metatarsal, Fracture-fibula, Fracture-tarsal, Fracture-tibia, Gout, Hematoma, Laceration, Malunion, Neurovascular injury, Open fracture, Osteomyelitis, Rheumatoid arthritis, Sprain, Septic, Ulcer Foot Diff Dx:Considerations: Include: Abrasion, Arthritis, Cellulitis, Contusion, Dislocation, DJD, Fracture-metatarsal, Fracture-phalynx, Fracture-ta rsal, Gout, Hematoma, Laceration, Neurovascular injury, Puncture, Rheumatoid, Sprain, Septic Toe Diff Dx:Considerations: Include: Neurovascular injury Departure Time of Disposition: 21:50 Disposition: HOME / SELF CARE / HOMELESS Impression: Primary Impression: Swelling of left foot Condition: Improved Additional Instructions: Please take the medications as prescribed previously. Follow up with your primary care provider for further evaluation of the bruising to your foot. Please follow up with your primary care provider in the next few days. Please return to the emergency department for any new or worsening concerning symptoms. Referrals: NO PRIMARY CARE PROVIDER (PCP) Education Educated: Patient Educated regarding: diagnosis, treatment, prognosis, need for follow up Signature Scribe Signature: No scribe Attestation: The note accurately reflects work and decisions made by me.BILL Barnard 07/08/25 12:09 MONIKA TOUSSAINT Jul 07, 2025 21:51
[2025-07-12] MEDS ORDERED: DIAZ-546 PO (22:59)
[2025-07-12] MEDS ORDERED: PER5325T PO (22:59)
[2025-07-12] MEDS ORDERED: OXYC-658 PO (23:26)
[2025-07-12] MEDS ORDERED: OXYC10TA47 (23:28)
[2025-07-12] MEDS ORDERED: RIVA15TA PO (23:28)
[2025-07-14] MEDS ORDERED: CEFD300C3 PO (14:31)
[2025-07-14] MEDS ORDERED: MIDO10TA3 PO (14:31)
[2025-07-14] MEDS ORDERED: BUME1TAB8 PO (14:44)
[2025-07-14] MEDS ORDERED: COR3.125T PO (14:44)
== END 2025-07-07 23:25 | disposition home or self-care (01) ==
LOC: ER 21:21
DX: M79.89 Other specified soft tissue disorders (principal); I50.9 Heart failure, unspecified; F41.9 Anxiety disorder, unspecified; Z56.0 Unemployment, unspecified; Z88.8 Allergy status to other drugs, medicaments and biological substances; Z79.899 Other long term (current) drug therapy
CPT/HCPCS: 99282